=== PATIENT | male | born 1985 | race Hispanic/Latino ===

== ENCOUNTER 2017-12-06 22:36 | Emergency (ER) | payer BC, SELFPAY ==
[2017-12-06] MEDS ORDERED: Ondansetron ODT 4 MG TAB ONE (22:59)
[2017-12-06] MEDS ORDERED: AMOXicillin 250 MG CAP ONE (23:04)
[2017-12-06] MEDS ORDERED: Dexamethasone 4 mg/ml Vial ONE (23:04)
== END 2017-12-06 23:12 | disposition home or self-care (01) ==
LOC: BURERS 22:36
DX: J02.9 Acute pharyngitis, unspecified (principal); Z87.891 Personal history of nicotine dependence
CPT/HCPCS: 99283; J1100; Q0162

== ENCOUNTER 2021-06-20 18:00 | Emergency (ER) | payer SELFPAY ==
[2021-06-21 12:49] LABS: SARS-CoV-2 PCR by NAA DETECTED (NotDetected)
== END 2021-06-20 19:40 | disposition home or self-care (01) ==
LOC: BURERS 18:00
DX: U07.1 COVID-19 (principal)
CPT/HCPCS: 99283; U0003; U0005